=== PATIENT | male | born 1990 | race Caucasian/White ===

== ENCOUNTER 2016-12-26 20:31 | Emergency (ER) | payer BC ==
[~2016-12-26] VITALS: Ht 175.3 cm; Wt 73.5 kg
[2016-12-26 20:38] VITALS: TEMP 36.8; Ht 175.3 cm; Wt 73.5 kg
[2016-12-26] MEDS ORDERED: TRAM-10 PO (21:00)
[2016-12-26 21:10] VITALS: BP 125/81; PULSE 75; O2SAT 97
--- NOTE | 2016-12-27 03:08 | EMERGENCY ROOM VISIT NOTE ---
ED Visit Note First contact with patient: 20:43 CHIEF COMPLAINT: Him having a severe toothache. HISTORY OF PRESENT ILLNESS: Mr. Asif is a 26-year-old white male who ambulates into the ED accompanied by female friend complaining of right maxillary dental pain. Historically patient reports he's had dental work performed on tooth #3 many years ago and it was capped. He does not remember exactly what procedures were done to the tooth. Patient reports acutely 3 days ago he started experiencing pain over tooth #3. He reports initially it was mild and then gradually increased in intensity. He describes a achy sensation that is sometimes sharp and throbbing. He is currently rating his discomfort 8/10. His pain is nonradiating. His pain worsens with palpation. He has not identified any alleviating factors related to the pain. He reports she's been taking ibuprofen with no relief of his discomfort. He denies any associated recent trauma, fevers, chills, skin eruptions, skin color changes, facial swelling, upper respiratory tract symptoms , ear pain, sore throat, painful swallowing, drooling, nausea/vomiting. REVIEW OF SYSTEMS: As noted above in History of Present Illness. PMH: As previously noted, status post wisdom teeth extraction. CURRENT MEDICATION: Patient denies.. ALLERGIES TO MEDICATION: Patient denies. SOCIAL HISTORY: Patient is currently University student; he feels safe in his home environment; he denies tobacco use. PHYSICAL EXAM: Vital Signs: Date Time Temp Pulse Resp B/P (MAP) Pulse Ox O2 Delivery O2 Flow Rate FiO2 12/26/16 21:10 75 16 125/81 97 Room Air 12/26/16 20:38 36.8 66 18 135/86 96 Room Air General: 26 year-old male in mild distress due to pain, nontoxic appearing, afebrile and hemodynamically stable. Neurological: Awake, alert and oriented to person, place and time. Answering questions appropriately and following commands. Skin: Warm, dry and pink. No soft tissue lesions, rashes, or trauma noted. HEENT: Atraumatic and normocephalic. No facial swelling or erythema. No malocclusion. No intraoral trauma. Airway patent. Uvula is midline and no abscesses are seen. Speech is normal. Tooth #3 is tender but there is no obvious signs of dental decay. No palpable abscesses or erythema or edema surrounding gingiva. No cervical or submandibular lymphadenopathy. ED COURSE: Patient is assessed as noted above. Patient's medication list was reviewed. Patient is educated about his findings and instructed on his treatment plan; he verbalizes understanding and agreement with this plan. CLINIC IMPRESSION: Dental pain. DISPOSITION: Patient discharged home in stable condition; prior to departure she was reassessed and subjectively reported she was feeling the same. PLAN: Comfort measures were discussed including a sliding pain scale of ibuprofen and Ultram; narcotic precautions were discussed with the patient and his name was checked on the state database and no red flags were noted. Patient was encouraged to followup with dentist for definitive care and treatment. Patient was encouraged to return the ED for uncontrolled pain, facial swelling or fevers or any new/concerning symptoms.
== END 2016-12-26 21:11 | disposition home or self-care (01) ==
LOC: C.EDB 20:34 → C.EDD 21:11
DX: K08.89 Other specified disorders of teeth and supporting structures (principal)